=== PATIENT | female | born 1965 | race Caucasian/White ===

== ENCOUNTER 2021-07-28 00:21 | Day surgery (SDC) | payer BC, SELFPAY ==
[2021-06-25 11:04] VITALS: BMI 27.5
--- NOTE | 2021-07-16 12:41 | PC.NURSE ---
Patient called 07/16/21 at 1241 and confirmed new date and time for procedure. Patient states she is not on any new medication and nothing has changed in her health history since completion of her PAT phone call on 06/25/21. -Jessika Arrington RN
--- NOTE | 2021-07-25 18:23 | WPDANESEPPF ---
Anes - Initial Pre Proc Eval Procedure: Operation Date: 07/28/21 09:00 Proposed Procedures p Screening Colonoscopy - Good Fuentes MD Date/Time: 07/25/21 18:23 Surgeon: Good Fuentes MD Pre Op Diagnosis: neoplasm screening Patient Data Age: 55 Gender: F Height: 1.65 m Weight: 75 kg Allergies Allergy/AdvReac Type Severity Reaction Status Date / Time No Known Allergies Verified 07/28/21 08:12 Home Medications Medication Instructions Recorded Confirmed Type cholecalciferol (vitamin D3) 1,250 1,250 mcg PO WEEKLY #4 cap 04/08/21 07/14/21 Rx mcg (50,000 unit) capsule mecobalamin (vitamin B12) 1,000 1,000 mcg PO DAILY 04/21/21 07/14/21 History mcg chewable tablet dextroamphetamine-amphetamine ER 20 mg PO QAM #30 cap 07/18/21 Rx 20 mg 24hr capsule,extend release fluticasone propionate 50 1 spray INTRANASAL BID #16 g 07/18/21 Rx mcg/actuation nasal spray,suspension Patient hx anesthesia problems: none Family hx anesthesia problems: none Results Review: All pre-operative results and documents have been reviewed as part of the pre-operative evaluation. [facility] Past Medical History Medical History ADHD Allergic rhinitis B12 deficiency BMI 30.0-30.9,adult BMI 31.0-31.9,adult Elevated fasting glucose Elevated TSH Lower abdominal pain Shoulder pain, bilateral Tobacco abuse Vitamin D deficiency Surgical History Surgical History History of shoulder surgery Right & Left Family History Family History Father Lung cancer Mother Breast cancer Hypertension Social History Social History Smoking packs per day: 1 Smoking cigarettes per day: 20.0 Years smoked: 30 Smoking pack-years: 30.00 Smoking status: Current every day smoker Tobacco type: cigarettes Alcohol intake: current Alcohol use details: socially Substance use: never Substance use type: does not use Living arrangements: with family Spiritual care concerns: No Anes - Eval Final PreProcedure Day of Procedure 07/25/21 18:23 Patient weight: overweight Heart: regular rate and rhythm Lungs: clear to auscultation and normal air movement Airway: Mallampati scale class II Neurological: alert and oriented Last oral intake: >/= 8 hours ASA classification: II Anesthetic plan: proceed Anesthesia type and monitoring: general GIVS and standard monitoring Results Review: All pre-operative results and documents have been reviewed as part of the pre-operative evaluation. Informed Consent: The patient's anesthetic plan and its attendant risks and benefits were discussed with the patient/family/POA. Questions were solicited and answers provided to the satisfaction of the patient/family/POA.
[2021-07-28 08:13] VITALS: BP 162/88; PULSE 83; RESP 16; TEMP 35.9; O2SAT 100; BMI 28.1
[2021-07-28] MEDS: LACTATED RINGERS 1,000 ML 150 ML IV CONT (08:25)
--- NOTE | 2021-07-28 08:31 | PM.HPGS ---
History of Present Illness History of Present Illness Consent: Risks, benefits, and alternatives have been discussed and questions answered. Patient agrees to proceed with procedure. Chief complaint: neoplasm screening Narrative: Micheline Rhodes is a 55 year old female Referred for colon cancer screening. Review of Systems Review of Systems: All systems reviewed & are unremarkable except as noted in HPI and below PMFSH Past Medical History Medical History ADHD Allergic rhinitis B12 deficiency BMI 30.0-30.9,adult BMI 31.0-31.9,adult Elevated fasting glucose Elevated TSH Lower abdominal pain Shoulder pain, bilateral Tobacco abuse Vitamin D deficiency Surgical History Surgical History History of shoulder surgery Right & Left Family History Family History Father Lung cancer Mother Breast cancer Hypertension Social History Social History Smoking packs per day: 1 Smoking cigarettes per day: 20.0 Years smoked: 30 Smoking pack-years: 30.00 Smoking status: Current every day smoker Tobacco type: cigarettes Alcohol intake: current Alcohol use details: socially Substance use: never Substance use type: does not use Living arrangements: with family Spiritual care concerns: No Meds Home Medications and Allergies Home Medications Medication Instructions Recorded Confirmed Type cholecalciferol (vitamin D3) 1,250 1,250 mcg PO WEEKLY #4 cap 04/08/21 07/14/21 Rx mcg (50,000 unit) capsule mecobalamin (vitamin B12) 1,000 1,000 mcg PO DAILY 04/21/21 07/14/21 History mcg chewable tablet dextroamphetamine-amphetamine ER 20 mg PO QAM #30 cap 07/18/21 Rx 20 mg 24hr capsule,extend release fluticasone propionate 50 1 spray INTRANASAL BID #16 g 07/18/21 Rx mcg/actuation nasal spray,suspension Allergies Allergy/AdvReac Type Severity Reaction Status Date / Time No Known Allergies Verified 07/28/21 08:12 Vital Signs Vital Signs - 24 hr 07/28/21 08:13 Temperature 35.9 C L Pulse Rate 83 Respiratory Rate 16 Blood Pressure 162/88 H Pulse Oximetry 100 Exam Resp: Auscultation: clear to auscultation bilaterally Cardio: Rate: regular rate Rhythm: regular rhythm GI: GI Palp: Yes Soft to palpation and No Tenderness to palpation present (GI) Assessment and Plan Assessment and plan (1) Colon cancer screening: Code(s): Z12.11 - Encounter for screening for malignant neoplasm of colon Status: Acute Assessment and Plan: Colonoscopy with possible biopsy or polypectomy or cautery or injection of substances.
[2021-07-28] MEDS: SIMETHICONE ORAL SUSPENSION 20 MG/0.3 ML 30 ML BOTTLE 0.6 ML IRRIGATION (08:48)
[2021-07-28 08:56] VITALS: BP 130/65; PULSE 81; RESP 18; O2SAT 100
[2021-07-28 09:06] VITALS: BP 133/69; PULSE 81; RESP 22; O2SAT 100
[2021-07-28 09:16] VITALS: BP 154/68; PULSE 75; RESP 21; O2SAT 100
== END 2021-07-28 09:19 | disposition home or self-care (01) ==
PROVIDERS: PCP Nurse Practitioner Family; Visit Provider Internal Medicine Gastroenterology
PROC: 0DJD8ZZ Inspection of Lower Intestinal Tract, Via Natural or Artificial Opening Endoscopic (ICD-10-PCS; CPT 45378; principal; 2021-07-28 09:00)
DX: Z12.11 Encounter for screening for malignant neoplasm of colon (principal); K57.30 Diverticulosis of large intestine without perforation or abscess without bleeding; F90.9 Attention-deficit hyperactivity disorder, unspecified type; E53.8 Deficiency of other specified B group vitamins; E55.9 Vitamin D deficiency, unspecified; R73.01 Impaired fasting glucose; F17.210 Nicotine dependence, cigarettes, uncomplicated
CPT/HCPCS: 45378; J2704; J7120

== ENCOUNTER 2023-11-18 15:54 | Outpatient (CLI) | payer BC, SELFPAY ==
[2023-11-18 16:42] LABS: Influenza A QL RT-PCR Positive (Negative); Influenza B QL RT-PCR Negative (Negative); RSV RNA, RT-PCR Negative (Negative); SARS-CoV-2 RNA PCR Negative (Negative)
== END 2023-11-18 15:55 | disposition home or self-care (01) ==
LOC: ANHLAB 15:56
PROVIDERS: PCP Nurse Practitioner Family; Visit Provider Nurse Practitioner Family
DX: R68.89 Other general symptoms and signs (principal); Z20.822 Contact with and (suspected) exposure to COVID-19
CPT/HCPCS: 87637